=== PATIENT | female | born 2000 | race Caucasian/White ===

== ENCOUNTER 2023-03-17 11:43 | Emergency (ER) | payer BC, SELFPAY ==
--- NOTE | 2023-03-17 11:46 | ED.SKABFB ---
HPI - Skin/Abscess/Foreign Bdy General Chief complaint: Skin/Abscess/Foreign Body Stated complaint: Rash Lt Leg Time Seen by Provider: 03/17/23 11:46 Source: patient Mode of arrival: ambulatory Limitations: no limitations History of Present Illness HPI narrative: María is a 22-year-old female patient presenting to the clinic today with complaints of a painful bump to the posterior left thigh. She reports symptoms developed a few days ago. She denies any fever chills. Does have has story of a staph infection and is concerned that this may be a another staph infection. Related Data Allergies Allergy/AdvReac Type Severity Reaction Status Date / Time No Known Allergies Allergy Mild Unverified 11/27/09 15:01 Review of Systems Review of Systems: Pertinent positives per HPI. Patient denies any fever, chills, headache, visual changes, dizziness, cough, runny nose, sore throat, shortness of breath, chest pain, palpitations, nausea, vomiting, diarrhea, constipation, abdominal pain, or any urinary issues. PMFSH Comments At the time of my signature, I reviewed and agree with the nursing past medical, surgical, social, and family history. There is no relevant family history pertinent to the patient complaint. Exam Narrative: General: Well-developed, well nourished, in no apparent distress Head: Normocephalic, atraumatic. Cardio: Regular rate and rhythm, s1 and s2 normal, no murmur appreciated. Resp: Clear to auscultation bilaterally, no rhonchi, rales, wheezing or rubs. Integumentary: [place], warm, and dry, 1 cm x 0.5 cm red raised pustular lesion, mild induration,mild fluctuant, and tender to palpation Course Course Emergency Course: Portions of this record may have been created with voice recognition software. Level of Care: Express Care Visit Vital Signs Vital signs: Vital signs reviewed MDM - Skin/Abscess/Foreign Bdy MDM Narrative Medical decision making narrative: At the time of visit patient is resting comfortably on exam table. Patient has a tender pustular lesion to the left posterior thigh with a history of staph infections. I will place her on Bactrim DS and supportive measures were discussed with the patient she voiced understanding discharge instructions agrees to treatment plan. Differential Diagnosis Differential diagnosis: Likely abscess of skin or subcutaneous tissue, urticaria, cellulitis, eczema, insect bites, impetigo and contact dermatitis Discharge Plan Discharge Clinical Impression: Staph infection Patient Disposition: Home, Self-Care Condition: Stable Instructions: Antibiotic Form, Abscess (ED) Additional Instructions: Take bactrim DS as prescribed Keep area clean and dry May apply warm compress to the affected area to bring it to head to drain May take tylenol/motrin as needed for pain Follow-up with your PCP in 3-5 days if symptoms persist or sooner if they worsen Go to the emergency room if you develop high fever not controlled by Tylenol Motrin, increasing pain, increasing swelling, increasing redness, streaking, or purulent discharge Prescriptions: New sulfamethoxazole-trimethoprim [Bactrim DS] 800-160 mg tablet 1 tablet PO Q12H 7 Days Qty: 14 0RF Follow-up/Referrals: UNKNOWN,DOCTOR [Non-Staff] - Time of Disposition: 11:59 Quality NIHSS Nursing Documentation ED NIHSS nursing documentation: reviewed/agree
[2023-03-17 11:54] VITALS: BP 151/79; PULSE 83; RESP 16; TEMP 36.7; O2SAT 98
== END 2023-03-17 12:03 | disposition home or self-care (01) ==
PROVIDERS: Emergency Provider Nurse Practitioner Family
DX: L08.9 Local infection of the skin and subcutaneous tissue, unspecified (principal); B95.8 Unspecified staphylococcus as the cause of diseases classified elsewhere
CPT/HCPCS: 99213; G0463